=== PATIENT | male | born 1930 | race Caucasian/White ===

== ENCOUNTER 2016-11-09 12:04 | Inpatient (IN) | payer OTHER ==
[~2016-11-09] VITALS: Ht 172.7 cm; Wt 76.1 kg
[~2016-11-09 12:04] MED LIST: ALFU10TA2 PO; CALC1TAB10 PO; CARB50TA3 PO; FINA5TAB PO; LISI5TAB PO; SELE5CAP2 PO
[2016-11-09] MEDS ORDERED: SODIUM CHLORIDE 0.9% 1000ML 250 ML IV STA (13:03)
[2016-11-09] MEDS ORDERED: SODIUM CHLORIDE 0.9% 1000ML 1,000 ML IV STA (13:03)
[2016-11-09 13:53] LABS: BASO % 0.3 %; BASO ABS # 0.01 K/uL (0-0.2); EOS % 2.8 %; HEMATOCRIT 25.4 % (42-52); LYMPH % 43.1 %; LYMPH ABS # 1.68 K/uL (1.2-3.4); MEAN CELL VOLUME 88.2 fL (80-100); MEAN CORPUSCULAR HEMOGLOBIN 29.5 pg (25-34); MEAN CORPUSCULAR HGB CONC 33.5 g/dl (32-36); MEAN PLATELET VOLUME 9.7 fL (7.4-10.4); MONO % 10.3 %; NEUT % 43.5 %; PLATELET COUNT 181 K/uL (130-400); RED BLOOD COUNT 2.88 M/uL (4.7-6.1)
[2016-11-09 14:06] LABS: CREATININE 0.7 mg/dl (0.60-1.40); POTASSIUM 3.9 mmol/L (3.5-5.1)
--- NOTE | 2016-11-09 14:15 | EMERGENCY ROOM VISIT NOTE ---
History Report prepared by Leonardo: Astrid Zapien Under the Supervision of: Dr. Carlos Vasquez M.D. First contact with patient: 12:50 Chief Complaint: DIZZY Stated Complaint: DIZZY AND UNBALANCED Nursing Triage Summary: Patient reports that he is stiff today has history of problems and is having a very hard time getting around History of Present Illness The patient is a 86 year old male who presents to the Emergency Room with complaints of persistent weakness starting this morning. The patient has a history of Parkinson's disease. This morning he was having a hard time standing up and walking. He has been falling frequently. He has not been seriously injured from his falls. He denies any pain, urinary symptoms or fever. He denies any medication changes. He has been eating and drinking normally. Besides feeling weak he has no other focal complaints. Source of History: patient, spouse/significant other Onset: this morning Position: other (global) Quality: other (weakness) Timing: other (persistent) Associated Symptoms: No fevers, No urinary symptoms Note: Pt reports a hard time standing up and walking. Pt denies being in any pain. Review of Systems As above. All other systems reviewed were negative unless otherwise stated in history. At least 10 were reviewed. Past Medical & Surgical Medical Problems: (1) Diabetes (2) Parkinson disease Old medical records were reviewed. Nurse's notes were reviewed and I agree with. Family History No pertinent family history Noncontributory secondary to age. Social History Smoking Status: Former Smoker Marital Status: Housing Status: lives with significant other Occupation Status: unemployed Current/Historical Medications Scheduled Alfuzosin Hcl (Uroxatral), 10 MG PO DAILY Calcium Carbonate-Cholecalcife (Calcium 1000 + D), 1 TAB PO DAILY Carbidopa/Levodopa (Sinemet Cr 50MG/200MG), 1 TAB PO TID Finasteride (Proscar), 1 TAB PO DAILY Lisinopril (Prinivil), 0.5 TAB PO DAILY Selegiline Hcl (Eldepryl), 5 MG PO DAILY Allergies Coded Allergies: No Known Allergies (Unverified , 11/09/16) Physical Exam Vital Signs Date Time Temp Pulse Resp B/P Pulse Ox O2 Delivery O2 Flow Rate FiO2 11/09/16 15:40 47 18 149/74 97 Room Air 11/09/16 14:01 44 20 117/61 96 Room Air 11/09/16 12:55 50 11/09/16 12:18 36.6 51 18 141/68 96 Room Air Physical Exam General: Chronically ill-appearing older male. Well developed well nourished in no acute distress, breathing comfortably on room air. Alert to person, place, day number. Answers questions appropriately. HEENT: Normal cephalic atraumatic. Pupils are equal round and reactive to light. Extraocular movements are intact. Oropharynx is pink with moist mucous membranes. No swelling of the mouth lips or tongue. Neck: Supple with a midline trachea. No meningeal signs or stiffness, no JVD or bruits. No Stridor. Chest: Clear to auscultation bilaterally. No wheezes or rhonchi. No increased work of breathing. Heart: regular rate and rhythm. Abdomen: Soft nontender, nondistended without rebound guarding or rigidity. Extremities: No cyanosis clubbing or edema. No calf tenderness or assymetry Spine/Back. Non tender to palpation. No CVA tenderness Skin: Good turgor without rashes. Neurologic exam: Cranial nerves two through 12 are intact. Motor and sensation are intact and symmetrical throughout. Diffuse weakness and Parkinson changes. Medical Decision & Procedures Laboratory Results 11/09/16 13:22 Red Blood Count 2.88, Mean Corpuscular Volume 88.2, Mean Corpuscular Hemoglobin 29.5, Mean Corpuscular Hemoglobin Concent 33.5, Mean Platelet Volume 9.7, Neutrophils (%) (Auto) 43.5, Lymphocytes (%) (Auto) 43.1, Monocytes (%) (Auto) 10.3, Eosinophils (%) (Auto) 2.8, Basophils (%) (Auto) 0.3, Neutrophils # (Auto ) 1.70, Lymphocytes # (Auto) 1.68, Monocytes # (Auto) 0.40, Eosinophils # (Auto ) 0.11, Basophils # (Auto) 0.01 11/09/16 13:22 Test 11/09/16 13:22 11/09/16 13:28 11/09/16 14:40 11/09/16 14:44 White Blood Count 3.90 K/uL (4.8-10.8) Red Blood Count 2.88 M/uL (4.7-6.1) Hemoglobin 8.5 g/dL (14.0-18.0) Hematocrit 25.4 % (42-52) Mean Corpuscular Volume 88.2 fL (80-100) Mean Corpuscular Hemoglobin 29.5 pg (25-34) Mean Corpuscular Hemoglobin Concent 33.5 g/dl (32-36) Platelet Count 181 K/uL (130-400) Mean Platelet Volume 9.7 fL (7.4-10.4) Neutrophils (%) (Auto) 43.5 % Lymphocytes (%) (Auto) 43.1 % Monocytes (%) (Auto) 10.3 % Eosinophils (%) (Auto) 2.8 % Basophils (%) (Auto) 0.3 % Neutrophils # (Auto) 1.70 K/uL (1.4-6.5) Lymphocytes # (Auto) 1.68 K/uL (1.2-3.4) Monocytes # (Auto) 0.40 K/uL (0.11-0.59) Eosinophils # (Auto) 0.11 K/uL (0-0.5) Basophils # (Auto) 0.01 K/uL (0-0.2) RDW Standard Deviation 51.8 fL (36.4-46.3) RDW Coefficient of Variation 15.9 % (11.5-14.5) Immature Granulocyte % (Auto) 0.0 % Immature Granulocyte # (Auto) 0.00 K/uL (0.00-0.02) Neutrophils % (Manual) 50.4 % Band Neutrophils % (Manual) 0.0 % Lymphocytes % (Manual) 43.4 % Variant Lymphocytes % (manual) 0.0 % Monocytes % (Manual) 4.4 % Eosinophils % (Manual) 0.9 % Basophils % (Manual) 0.9 % (0-2) Neutrophils # (Manual) 1.97 K/uL (1.4-6.5) Total Absolute Neutrophils 1.97 K/uL (1.4-6.5) Lymphocytes # (Manual) 1.69 K/uL (1.2-3.4) Total Absolute Lymphocytes 1.69 K/uL (1.2-3.4) Monocytes # (Manual) 0.17 K/uL (0.11-0.59) Eosinophils # (Manual) 0.04 K/uL (0-0.5) Basophils # (Manual) 0.04 K/uL (0-0.2) Percent Large Granular Lymphocytes 0.0 % Large Platelets 2+ Anion Gap 6.0 mmol/L (3-11) Est Creatinine Clear Calc Drug Dose 63.5 ml/min Estimated GFR () 99.0 Estimated GFR (Non- 85.5 BUN/Creatinine Ratio 40.0 (10-20) Calcium Level 8.0 mg/dl (8.5-10.1) Total Bilirubin 0.4 mg/dl (0.2-1) Direct Bilirubin 0.1 mg/dl (0-0.2) Aspartate Amino Transf (AST/SGOT) 17 U/L (15-37) Alanine Aminotransferase (ALT/SGPT) 6 U/L (12-78) Alkaline Phosphatase 60 U/L (45-117) Total Creatine Kinase 122 U/L (39-308) Creatine Kinase MB 3.2 ng/ml (0.5-3.6) Creatine Kinase MB Ratio 2.6 (0-3.0) Total Protein 5.5 gm/dl (6.4-8.2) Albumin 2.7 gm/dl (3.4-5.0) Lipase 90 U/L (73-393) Thyroid Stimulating Hormone (TSH) 0.728 uIu/ml (0.300-4.500) Bedside Troponin I 0.040 ng/ml (0-0.045) Urine Color YELLOW Urine Appearance CLEAR (CLEAR) Urine pH 6.5 (4.5-7.5) Urine Specific [place] 1.026 (1.000-1.030) Urine Protein NEG (NEG) Urine Glucose (UA) NEG (NEG) Urine Ketones TRACE (NEG) Urine Occult Blood NEG (NEG) Urine Nitrite NEG (NEG) Urine Bilirubin NEG (NEG) Urine Urobilinogen NEG (NEG) Urine Leukocyte Esterase NEG (NEG) Urine WBC (Auto) 1-5 /hpf (0-5) Urine RBC (Auto) 0-4 /hpf (0-4) Urine Hyaline Casts (Auto) 1-5 /lpf (0-5) Urine Epithelial Cells (Auto) 10-20 /lpf (0-5) Urine Bacteria (Auto) NEG (NEG) Prothrombin Time 11.3 SECONDS (9.0-12.0) Prothromb Time International Ratio 1.1 (0.9-1.1) Activated Partial Thromboplast Time 26.4 SECONDS (21.0-31.0) Partial Thromboplastin Ratio 1.0 Laboratory studies as stated above per my review. Medications Administered Medications (Trade) Dose Ordered Sig/Ale Route Start Time Stop Time Status Last Admin Dose Admin Sodium Chloride 250 ml @ 999 mls/hr Q16M STAT IV 11/09/16 13:03 11/09/16 13:18 DC 11/09/16 14:01 999 MLS/HR Sodium Chloride (Nss 1000ml) 1,000 ml @ 100 mls/hr Q10H STAT IV 11/09/16 13:03 11/09/16 23:02 11/09/16 13:03 100 MLS/HR ECG Indication: weakness Rate (beats per minute): 36 Rhythm: sinus bradycardia Findings: no acute ischemic change, no ectopy Comparison ECG Date: Change: rate has decreased, premature SVT now absent ED Course 1250: Past medical records reviewed. The patient was evaluated in room A10, and a complete history and physical examination were performed. 1303: NSS 1000 ml @ 100 mls/hr IV, NSS 250 ml @ 999 mls/hr IV. 1459: Upon reevaluation, the patient is resting comfortably. I discussed the results and treatment plan with the patient and his . They verbalized agreement of the treatment plan. The patient will be evaluated for further management. Medical Decision Differential diagnoses: weakness, Parkinson's exacerbation, CVA, cardiac disease , arrhythmia, electrolyte or metabolic abnormality. This patient comes in as described above. He was placed in room A 10. Here for treatment and evaluation of weakness. He does have Parkinson's and has a hard time getting up and taking care of himself he tends to fall. He's much more weak today than normal, it is diffuse and nonfocal. He has no fever or chills. He was placed on a groundwater monitoring technician in room A 10. CAT scan of his head EKG multiple blood testing was obtained he was hydrated with normal saline. He was reassessed frequently. He was found to be bradycardic however that appears be baseline he's been normotensive with it. It appears be a sinus bradycardia. he is mildly anemic at 8.5 otherwise baselines about 10. He has a BUN at 28 so there could be hydration issue although this is about baseline as well. CAT scan his head is unremarkable. Urinalysis is pending. I have consulted Dr. Mccollum as I do think the patient needs to be admitted for weakness. Impression Primary Impression: Weakness Additional Impression: Frequent falls Scribe Attestation The scribe's documentation has been prepared under my direction and personally reviewed by me in its entirety. I confirm that the note above accurately reflects all work, treatment, procedures, and medical decision making performed by me. Departure Information Dispostion Being Evaluated By Hospitalist Referrals Rohit Carrero M.D. (PCP) Patient Instructions [facility] Problem Qualifiers
[2016-11-09 14:17] LABS: CKMB/CK RATIO 2.6 (0-3.0); THYROID STIMULATING HORMONE 0.728 uIu/ml (0.300-4.500)
[2016-11-09 14:27] LABS: BASO ABS # 0.04 K/uL (0-0.2); BASOPHIL % 0.9 % (0-2); COMPLETE YES; EOSINOPHIL % 0.9 %; LARGE PLATELETS 2+; LYMPH ABS # 1.69 K/uL (1.2-3.4); LYMPHOCYTE % 43.4 %; NEUTROPHILS % 50.4 %
[2016-11-09 15:00] LABS: URINE APPEARANCE CLEAR (CLEAR); URINE BILIRUBIN NEG (NEG); URINE COLOR YELLOW; URINE NITRITE NEG (NEG); URINE PH 6.5 (4.5-7.5); URINE SPECIFIC GRAVITY 1.026 (1.000-1.030); UROBILINOGEN NEG (NEG)
[2016-11-09 15:02] LABS: INR 1.1 (0.9-1.1); PROTHROMBIN TIME (PATIENT) 11.3 SECONDS (9.0-12.0)
[2016-11-09 15:10] LABS: MANUAL MICROSCOPIC REQUIRED? NO; REVIEW REQ? NO
--- NOTE | 2016-11-09 15:35 | DIAGNOSTIC IMAGING REPORT ---
HEAD CT NONCONTRAST CT DOSE: 537.48 mGy.cm HISTORY: Mental status change eval for weakness and dizziness TECHNIQUE: Multiaxial CT images of the head were performed without the use of intravenous contrast. Comparison: 07/06/2015 Findings: The paranasal sinuses and mastoid air cells are clear. Mild cerebellar as well as frontal cerebral atrophy. Age-related components of chronic small vessel change. No acute intracranial abnormality. Ventricular system is midline. Impression: Age-related change. No acute process. Electronically signed by: Usama Quigley M.D. 11/09/2016 3:33 PM Dictated Date/Time: 11/09/2016 3:32 PM
--- NOTE | 2016-11-09 17:52 | DIAGNOSTIC IMAGING REPORT ---
CHEST ONE VIEW PORTABLE CLINICAL HISTORY: Abnormal chest x-ray COMPARISON STUDY: 08/19/2016 FINDINGS: The heart remains enlarged. There is no lobar consolidation. Left upper lung zone opacities are felt to be postinflammatory. There is no failure. There are no pleural effusions.[ IMPRESSION: Stable findings. Left upper lung zone opacities likely postinflammatory. No acute findings Electronically signed by: Jeyson Altman M.D. 11/09/2016 5:50 PM Dictated Date/Time: 11/09/2016 5:49 PM
[2016-11-09 18:25] VITALS: BP 166/68; PULSE 53; TEMP 36.6; Ht 172.7 cm; Wt 76.1 kg
[2016-11-09] MEDS: SODIUM CHLORIDE 0.9% 1000ML 1,000 ML IV SCH (19:04)
[2016-11-09] MEDS: HEPARIN SOD 5000 UNIT/0.5 ML CARP SQ SCH (20:21)
[2016-11-09] MEDS: CARBIDOPA/LEVODOPA 50/200MG EXT REL TAB PO SCH (20:45)
[2016-11-09 23:18] VITALS: BP 178/83; PULSE 45; TEMP 36.7; O2SAT 96
[2016-11-10] VITALS (7 sets, daily range): BP systolic 124–183; BP diastolic 66–95; PULSE 48–96; TEMP 36.4–36.9; O2SAT 90–98
--- NOTE | 2016-11-10 00:47 | HISTORY & PHYSICAL EXAMINATION ---
DATE OF ADMISSION: 11/09/2016 An 86-year-old male admitted through the Emergency Room with multiple problems including mental status changes, severe weakness, Parkinson disease. PRESENT ILLNESS: The patient with Parkinson's disease, arterial hypertension, previously diagnosed with type 2 diabetes mellitus but did not require any drug therapy, general debilitation, progressive weakness, and declining functional ability. His called this morning stating her is down on his hands and feet. That is how he moves around the house at times because he feels safer. He has had multiple falls. She was trying to talk to him but he was not able to understand her very well. She was concerned about his condition and his deteriorating ability to stand up. She was not able to get him up. We asked her to call an ambulance and have him brought to the Emergency Room. The patient was evaluated by Dr. Vasquez. Multiple tests were done. His condition was quite weakened. Eventually, during his stay in the Emergency Room, his mental status started to improve. I saw the patient in the Emergency Room and he was admitted for further treatment. PAST MEDICAL HISTORY: 1. Parkinson's disease diagnosed back in 1997. 2. Type 2 diabetes mellitus. Had been at one time in the past on metformin, but he has not required any medication over the last 2-3 years. 3. 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 4. Right inguinal hernia repair back in 2003. 5. His vaccinations are up to date. SOCIAL HISTORY: He is . This is his second marriage. He has 2 sons from his first marriage. He stopped smoking about 25 years ago. He did smoke cigars in the past. Denied any alcohol. No excessive coffee, tea or soft drinks. He worked for [employer]. FAMILY HISTORY: His mother at age 45, had a brain tumor. His father at age 92, had atherosclerotic heart disease. He has 2 sisters. Children alive and well. ALLERGIES: None. MEDICATIONS ON ADMISSION: All as noted on his home medication list. REVIEW OF SYSTEMS: When I saw the patient in the Emergency Room, he seems to be resting comfortably. He denied any headache, no dizziness. No chest pain, no shortness of breath. No abdominal pain. His appetite has been decreased. No nausea, no vomiting. No problem with his bowel movements. No problem urinating. He was not having any pain in his extremities. He was complaining of pain in his back, the way he was lying down. PHYSICAL EXAMINATION: GENERAL: Well developed, in no distress. His recorded weight was 70 kg, height 162.6 cm, BMI 26.5. VITAL SIGNS: On arrival to the Emergency Room, his blood pressure was 141/68, pulse 51, respiration 18, temperature 36.6, oxygen saturation 96% on room air. SKIN: Warm and dry. No rash. No bruising. HEENT: He usually wears glasses. He has upper dentures. No evidence of any head trauma. No mucosal abnormalities. NECK: Supple. Nontender. No adenopathy, no thyromegaly. No JVD. No evident carotid bruit. CHEST: Normal. HEART: Regular heart sounds. 1/6 systolic murmur. Markedly bradycardic. LUNGS: Clear. ABDOMEN: Soft, nontender, without organomegaly or masses. BACK: Evidence of kyphoscoliosis. EXTREMITIES: No edema, clubbing or cyanosis. No joint or muscle tenderness. Decreased pedal pulses. NEUROLOGIC: Very slow reactions. He is able to answer appropriately. There is no evidence of any lateralized deficit. He does have stiffness related to his Parkinson's disease. ADMISSION LABORATORY TESTS: WBC count 3900, hemoglobin 8.5, hematocrit 25.4, platelet count 181,000. Sodium 144, potassium 3.9, chloride 109, CO2 29, BUN 28, creatinine 0.7, glucose 126, calcium 8.0, total bilirubin 0.4, direct bilirubin 0.1, AST 17, ALT 6, alkaline phosphatase 60, total CK 122, MB fraction 3.2, troponin I 0.040. Total protein 5.5, albumin 2.7, lipase 90. TSH 0.728. His electrocardiogram showed severe sinus bradycardia. His chest x-ray showed stable findings. The left upper lung zone opacity on the left side showed no changes. His CT scan of the head without contrast showed no acute findings. His urinalysis did not show evidence of any urinary tract infection. ASSESSMENT: 1. Mental status changes. 2. Generalized weakness. 3. Severe functional decline. 4. Parkinson's disease. 5. Chronic sinus bradycardia. 6. History of type 2 diabetes mellitus, not requiring any drug therapy. 7. Arterial hypertension. 8. Anemia PLAN: The patient was admitted to a medical bed. Resuscitation level 5. All his laboratory tests were ordered. Started on IV fluid. Continued on his oral medications. Physical and occupational therapies were ordered. The plan is to hydrate him. Investigate his anemia. Check his stool for occult blood. Proceed with his therapies. Decide on the need for rehab. ARCELIA
[2016-11-10 06:13] LABS: BASO % 1.1 %; BASO ABS # 0.04 K/uL (0-0.2); COMPLETE YES; EOS % 5.3 %; HEMATOCRIT 28.8 % (42-52); LYMPH % 47.6 %; LYMPH ABS # 1.72 K/uL (1.2-3.4); MEAN CORPUSCULAR HEMOGLOBIN 29.7 pg (25-34); MEAN PLATELET VOLUME 9.5 fL (7.4-10.4); PLATELET COUNT 197 K/uL (130-400); WHITE BLOOD COUNT 3.61 K/uL (4.8-10.8)
[2016-11-10] MEDS: SODIUM CHLORIDE 0.9% 1000ML 1,000 ML IV SCH ×2 (06:18→17:44)
[2016-11-10] MEDS: HEPARIN SOD 5000 UNIT/0.5 ML CARP SQ SCH ×2 (06:23→18:25)
[2016-11-10 06:37] LABS: ESTIMATED AVERAGE GLUCOSE 154 mg/dl; HA1C FLAG Normal (Normal)
[2016-11-10 06:44] LABS: BUN/CREATININE RATIO 31.7 (10-20); CALCIUM 7.9 mg/dl (8.5-10.1); CREATININE 0.75 mg/dl (0.60-1.40); POTASSIUM 3.8 mmol/L (3.5-5.1)
[2016-11-10 06:48] LABS: FERRITIN 11.9 ng/ml (8.0-388.0)
[2016-11-10] MEDS: FINASTERIDE 5 MG TAB PO SCH (07:44)
[2016-11-10] MEDS: ALFUZosin TAB 10 MG TAB PO SCH (07:44)
[2016-11-10] MEDS: CARBIDOPA/LEVODOPA 50/200MG EXT REL TAB PO SCH ×3 (07:44→20:29)
[2016-11-10] MEDS: SELEGILINE HCL 5 MG CAP PO SCH (07:44)
[2016-11-10] MEDS: HydrALAZINE HCL 20 MG/ML VIAL IV. PRN (07:51)
--- NOTE | 2016-11-10 09:07 | Clinical Documentation Query ---
[facility] : CLINICAL DOCUMENTATION QUERIES QUERY 1 OF 2 Patient is an 86 year old male admitted for evaluation and treatment of mental status changes, generalized weakness, and severe functional decline. Noted is a past medical history of Parkinson's disease. CT scan of the head without contrast demonstrated no acute findings. UA without evidence of infection. As appropriate, consider linking the above diagnostic statements in a manner depicting causality. This directly impacts DRG assignment. In your clinical opinion is this patient being managed for: ( x ) Generalized weakness and severe functional decline (likely/suspected to be) due to Parkinson's disease ( ) Other explanation of clinical findings (Please Explain) ( ) Unable to determine (Please Define) ( ) Need to Discuss ( ) Not Agree The medical record reflects the following clinical findings, treatment, and risk factors. Clinical Indicators: As above Treatment:CT scan of the head without contrast demonstrated no acute findings. UA without evidence of infection, Sinemet, Eldepryl Risk Factors: Likely multifactorial, genetic and environmental. QUERY 2 OF 2 As above, noted documentation includes "altered mental status". As noted, CT scan of the head without contrast was negative for acute changes. Condition noted to improve during interval in the emergency department. Serum BUN elevated with normal creatinine. Recieved IVF NSS bolus and maintenance fluids which continue. Consider documentation as suggested below as clinically appropriate. Thank you. In your clinical opinion is this patient being managed for: ( ) Metabolic encephalopathy on admission, resolved ( ) Other explanation of clinical findings (Please Explain) ( ) Unable to determine (Please Define) ( ) Need to Discuss (x ) Not Agree The medical record reflects the following clinical findings, treatment, and risk factors. Clinical Indicators: Altered mental status Treatment:IVF, CT scan of the head, labs, cultures Risk Factors: Age, medications, infection Please clarify and document your clinical opinion in the progress notes and discharge summary. Terms such as "probable", "suspected", "likely", "questionable", "possible", or "still to be ruled out" are acceptable. IF IN AGREEMENT, YOU MUST DOCUMENT ABOVE DIAGNOSTIC STATEMENT IN DAILY PROGRESS NOTES AND DISCHARGE SUMMARY. This document is not part of the patient's record. Thank You, Carlos Rubio, RN [phone]
[2016-11-10] MEDS ORDERED: ALUMINUM/MAGNESIUM SUSP 30 ML UDC ONE (16:33)
--- NOTE | 2016-11-10 19:08 | PROGRESS NOTE ---
DATE: 11/10/2016 SUBJECTIVE: An 86-year-old male admitted with mental status changes, generalized weakness, markedly decreased function. He has severe Parkinson disease. He also has arterial hypertension. The patient was admitted, started on IV fluids. All his laboratory tests were ordered. Physical and occupational therapies were ordered. Case management consultation was also requested to work on getting him to a rehabilitation. Overall, his condition improved. He was sitting up in the chair. He is tolerating his diet. He is able to swallow. Denied any headache or dizziness. No chest pain, no shortness of breath. No nausea or vomiting. No pain in his back or extremities. He is generally quite weak. Needs assistance with his activity. PHYSICAL EXAMINATION: GENERAL: Well-developed in no distress. VITAL SIGNS: Blood pressure 183/95, pulse 96, respirations 16, temperature 36.4, oxygen saturation 90% on room air. SKIN: Warm and dry. No rash. HEENT: No mucosal abnormality. He does have drooling from his mouth related to his Parkinson disease. NECK: No adenopathy. No JVD. HEART: Regular heart sounds. LUNGS: Clear. ABDOMEN: Soft, nontender. BACK: No spinal tenderness. EXTREMITIES: No edema, clubbing, or cyanosis. TODAY'S LABORATORY TESTS: WBC count 3610, hemoglobin 9.5, hematocrit 28.8, platelet count 197,000. Sodium 142, potassium 3.8, chloride 107, CO2 29, BUN 24, creatinine 0.75, glucose 108, calcium 7.9. ASSESSMENT: 1. Mental status changes. 2. Parkinson disease. 3. Functional decline. 4. Arterial hypertension. PLAN: 1. Continue IV fluid. 2. Continue monitoring his laboratory tests. 3. Physical and occupational therapy. 4. We will continue working on getting him to [facility]. I spoke with his today.
[2016-11-11] VITALS (7 sets, daily range): BP systolic 145–194; BP diastolic 65–82; PULSE 57–60; TEMP 36.3–36.9; O2SAT 93–97
[2016-11-11] MEDS: SODIUM CHLORIDE 0.9% 1000ML 1,000 ML IV SCH ×2 (06:21→17:16)
[2016-11-11] MEDS: HEPARIN SOD 5000 UNIT/0.5 ML CARP SQ SCH ×2 (06:29→17:16)
[2016-11-11 06:31] LABS: BASO % 0.5 %; BASO ABS # 0.02 K/uL (0-0.2); EOS % 4.7 %; HEMATOCRIT 26.8 % (42-52); IG% 0.2 %; LYMPH ABS # 1.81 K/uL (1.2-3.4); MEAN CELL VOLUME 88.7 fL (80-100); MEAN CORPUSCULAR HEMOGLOBIN 29.5 pg (25-34); MEAN CORPUSCULAR HGB CONC 33.2 g/dl (32-36); MEAN PLATELET VOLUME 9.8 fL (7.4-10.4); NEUT % 40.6 %; PLATELET COUNT 173 K/uL (130-400); RED BLOOD COUNT 3.02 M/uL (4.7-6.1); WHITE BLOOD COUNT 4.02 K/uL (4.8-10.8)
[2016-11-11 07:11] LABS: BUN/CREATININE RATIO 32.6 (10-20); CREATININE 0.65 mg/dl (0.60-1.40); POTASSIUM 4.1 mmol/L (3.5-5.1)
[2016-11-11 07:16] LABS: COMPLETE YES; LARGE PLATELETS 1+
[2016-11-11] MEDS: CARBIDOPA/LEVODOPA 50/200MG EXT REL TAB PO SCH ×3 (07:56→20:28)
[2016-11-11] MEDS: FINASTERIDE 5 MG TAB PO SCH (07:57)
[2016-11-11] MEDS: SELEGILINE HCL 5 MG CAP PO SCH (07:57)
[2016-11-11] MEDS: ALFUZosin TAB 10 MG TAB PO SCH (07:57)
[2016-11-11] MEDS: ALUMINUM/MAGNESIUM/SIMETH (MAALOX MAX) 30 ML UDC PO PRN (10:23)
[2016-11-11] MEDS: HydrALAZINE HCL 20 MG/ML VIAL IV. PRN ×2 (15:23→23:28)
[2016-11-11] MEDS ORDERED: LISINOPRIL 5 MG TAB PO ONE (18:45)
--- NOTE | 2016-11-11 20:50 | PROGRESS NOTE ---
DATE: 11/11/2016 An 86-year-old male, admitted with mental status changes with severe weakness. He has Parkinson's disease. Also treated for arterial hypertension. The patient was admitted. He was started on IV fluids. All his laboratory tests were ordered. Physical and occupational therapies were ordered. He still is feeling quite weak. He has the tremor and the findings on exam consistent with his severe Parkinson's disease. He denied any headache or dizziness. No chest pain. No shortness of breath. He is tolerating his diet. No abdominal pain, no nausea, no vomiting. No problem urinating. He has not had a bowel movement yet. PHYSICAL EXAMINATION: GENERAL: Well-developed, in no distress. VITAL SIGNS: Blood pressure 182/80, pulse 58, respirations 18, temperature 36.4 and oxygen saturation 97% on room air. SKIN: Warm and dry. No rash. HEENT: No mucosal abnormality. NECK: No JVD. No adenopathy. HEART: Regular heart sounds. LUNGS: Clear. ABDOMEN: Soft and nontender. BACK: No spinal tenderness. EXTREMITIES: No edema, clubbing or cyanosis. TODAY'S LABORATORY TESTS: WBC count 4020, hemoglobin 8.9, hematocrit 26.8 and platelet count 173,000. Sodium 142, potassium 4.1, chloride 108, CO2 27, BUN 21, creatinine 0.65, glucose 113 and calcium 8.0. ASSESSMENT: 1. Generalized weakness. 2. Marked functional decline. 3. Parkinson's disease. 4. Arterial hypertension. PLAN: 1. Early this morning, his son Collin was visiting him and he wanted to talk to me, so I spoke with him by phone. He stated that he was concerned about his father going home and he thought that he should be in a nursing facility. I asked him to talk to case management; we are working on discharge planning and need to come to an agreement as far as what he would like to do. 2. I added lisinopril because of his elevated blood pressure. 3. Continuing all his other medications. 4. Continuing his therapies.
[2016-11-12] VITALS (8 sets, daily range): BP systolic 104–162; BP diastolic 57–77; PULSE 52–66; TEMP 36.6–37.2; O2SAT 93–97
[2016-11-12] MEDS: HEPARIN SOD 5000 UNIT/0.5 ML CARP SQ SCH ×2 (05:49→16:58)
[2016-11-12 06:20] LABS: BASO % 0.4 %; BASO ABS # 0.02 K/uL (0-0.2); COMPLETE YES; EOS % 2.3 %; HEMATOCRIT 28.2 % (42-52); IG% 0.2 %; LYMPH % 37.8 %; LYMPH ABS # 2.16 K/uL (1.2-3.4); MEAN CELL VOLUME 86.2 fL (80-100); MEAN CORPUSCULAR HEMOGLOBIN 28.4 pg (25-34); MEAN PLATELET VOLUME 9.1 fL (7.4-10.4); MONO % 9.8 %; NEUT % 49.5 %; PLATELET COUNT 193 K/uL (130-400); RED BLOOD COUNT 3.27 M/uL (4.7-6.1); WHITE BLOOD COUNT 5.71 K/uL (4.8-10.8)
[2016-11-12 06:57] LABS: BUN/CREATININE RATIO 32.7 (10-20); CALCIUM 7.6 mg/dl (8.5-10.1); CREATININE 0.63 mg/dl (0.60-1.40); POTASSIUM 4.3 mmol/L (3.5-5.1)
[2016-11-12] MEDS: SELEGILINE HCL 5 MG CAP PO SCH (08:28)
[2016-11-12] MEDS: CARBIDOPA/LEVODOPA 50/200MG EXT REL TAB PO SCH ×3 (08:29→20:39)
[2016-11-12] MEDS: FINASTERIDE 5 MG TAB PO SCH (08:29)
[2016-11-12] MEDS: SODIUM CHLORIDE 0.9% 1000ML 1,000 ML IV SCH (08:29)
[2016-11-12] MEDS: ALFUZosin TAB 10 MG TAB PO SCH (08:30)
[2016-11-12] MEDS: LISINOPRIL 5 MG TAB PO SCH (08:30)
[2016-11-12] MEDS: ALUMINUM/MAGNESIUM/SIMETH (MAALOX MAX) 30 ML UDC PO PRN (09:51)
[2016-11-12] MEDS ORDERED: MAGNESIUM HYDROXIDE SUSP 30 ML UDC PO ONE (17:00)
--- NOTE | 2016-11-12 17:37 | PROGRESS NOTE ---
DATE: 11/12/2016 An 86-year-old male admitted with multiple problems including generalized weakness, functional decline, Parkinson disease, has had multiple falls at home. He also has previously diagnosed type 2 diabetes mellitus, but not requiring any drug therapy. He is also treated for arterial hypertension. Overall, his condition is improved. His mental status is back to his baseline. He is awake and alert and quite appropriate and conversant. There is no evidence of any lateralized deficit. His limitation is mostly related to his Parkinson disease. He denied any headache or dizziness or lightheadedness. No chest pain, no shortness of breath. He is eating well. He is able to feed himself. No abdominal pain, no nausea, no vomiting. No problem urinating. He has not had a bowel movement yet. PHYSICAL EXAMINATION: GENERAL: Well developed, in no distress. VITAL SIGNS: Blood pressure 162/76, pulse 60, respirations 18, temperature 36.6, oxygen saturation 96% on room air. SKIN: Warm and dry. No rash. HEENT: He does have drooling from his mouth. NECK: No JVD, no adenopathy. HEART: Regular heart sounds. LUNGS: Clear. ABDOMEN: Soft, nontender. BACK: No spinal tenderness. EXTREMITIES: No edema, clubbing, or cyanosis. TODAY'S LABORATORY TESTS: WBC count 5710, hemoglobin 9.3, hematocrit 28.2, platelet count 193,000. Sodium 141, potassium 4.3, chloride 107, CO2 25, BUN 21, creatinine 0.63, glucose 120, calcium 7.6. ASSESSMENT: 1. Generalized weakness and functional decline. 2. Mental status changes. Resolved. 3. Arterial hypertension. 4. Parkinson disease. PLAN: 1. I discontinued his IV fluid. 2. We will give him milk of magnesia to facilitate his bowel movements. 3. We will also put him on a stool softener. 4. Continuing with his therapies. 5. I was able to walk with him in the hallway. He is using a walker with wheels. He did quite well. He does have very slow pace. He has to work on his balance and equilibrium. These are some chronic issues with him. 6. We are working on discharge planning. We will anticipate the final decision sometimes in the next day or so.
[2016-11-12] MEDS: DOCUSATE SODIUM 100 MG CAP PO SCH (20:39)
[2016-11-13] VITALS (8 sets, daily range): BP systolic 104–157; BP diastolic 44–72; PULSE 50–73; TEMP 36.8–36.9; O2SAT 93–98
[2016-11-13] MEDS: HEPARIN SOD 5000 UNIT/0.5 ML CARP SQ SCH ×2 (05:26→18:15)
[2016-11-13] MEDS: FINASTERIDE 5 MG TAB PO SCH (08:19)
[2016-11-13] MEDS: SELEGILINE HCL 5 MG CAP PO SCH (08:19)
[2016-11-13] MEDS: ALFUZosin TAB 10 MG TAB PO SCH (08:20)
[2016-11-13] MEDS: LISINOPRIL 5 MG TAB PO SCH (08:20)
[2016-11-13] MEDS: CARBIDOPA/LEVODOPA 50/200MG EXT REL TAB PO SCH ×3 (08:20→21:12)
[2016-11-13] MEDS: DOCUSATE SODIUM 100 MG CAP PO SCH ×2 (08:21→21:12)
[2016-11-13] MEDS: ALUMINUM/MAGNESIUM/SIMETH (MAALOX MAX) 30 ML UDC PO PRN (14:09)
[2016-11-13 16:27] LABS: ALBUMIN 3.1 G/DL (3.8-4.8); GAMMA GLOBULIN 1.1 G/DL (0.8-1.7); TOTAL PROTEIN 5.7 G/DL (6.2-8.3)
--- NOTE | 2016-11-13 20:49 | PROGRESS NOTE ---
DATE: 11/13/2016 An 86-year-old male, with Parkinson's disease. He was admitted with mental status changes, generalized weakness, functional decline and had multiple falls at home. He was also treated for arterial hypertension. He has a history of type 2 diabetes mellitus, but has not required any treatment. Overall, his condition has improved. He was hydrated. Laboratory tests were monitored. Physical and occupational therapies were ordered. His mental status is back to his baseline. He denied any new problems or complaints. No headache or dizziness. No chest pain, no shortness of breath. No abdominal pain. He did have bowel movements. No urinary problem. No pain in his back or extremities. We are working on discharge planning. The main issue is he needs rehabilitation. We are working on [facility]. Hopefully, this will be approved. If not, the other options include [facility]. PHYSICAL EXAMINATION: GENERAL: Well-developed, in no distress. VITAL SIGNS: Blood pressure 157/72, pulse 54, respirations 22, temperature 36.8 and oxygen saturation 93% on room air. SKIN: Warm and dry. No rash. HEENT: He does have some mouth drooling; this is chronic. NECK: Supple. Nontender. No JVD. HEART: Regular heart sounds. LUNGS: Clear. ABDOMEN: Soft and nontender. EXTREMITIES: No edema, clubbing or cyanosis. ASSESSMENT: 1. Parkinson's disease. 2. Mental status changes. 3. Functional decline. 4. Arterial hypertension. PLAN: 1. Continuing the same medications. 2. Working on his discharge planning. 3. We are waiting for approval either to go to [facility] or possibly other options. MTDAshlee
[2016-11-14] MEDS: HEPARIN SOD 5000 UNIT/0.5 ML CARP SQ SCH ×2 (05:33→17:23)
[2016-11-14 06:10] LABS: BASO % 0.5 %; BASO ABS # 0.02 K/uL (0-0.2); HEMATOCRIT 25.8 % (42-52); LYMPH % 38.5 %; LYMPH ABS # 1.56 K/uL (1.2-3.4); MEAN CELL VOLUME 88.4 fL (80-100); MEAN CORPUSCULAR HEMOGLOBIN 29.5 pg (25-34); MEAN CORPUSCULAR HGB CONC 33.3 g/dl (32-36); MEAN PLATELET VOLUME 9.8 fL (7.4-10.4); MONO % 10.4 %; NEUT % 46.6 %; PLATELET COUNT 184 K/uL (130-400); RED BLOOD COUNT 2.92 M/uL (4.7-6.1); WHITE BLOOD COUNT 4.05 K/uL (4.8-10.8)
[2016-11-14 06:50] LABS: BUN/CREATININE RATIO 26.8 (10-20); COMPLETE YES; CREATININE 0.79 mg/dl (0.60-1.40); GIANT PLATELETS 2+; POTASSIUM 4.5 mmol/L (3.5-5.1)
[2016-11-14] MEDS: LISINOPRIL 5 MG TAB PO SCH (07:43)
[2016-11-14] MEDS: DOCUSATE SODIUM 100 MG CAP PO SCH ×2 (07:44→19:30)
[2016-11-14] MEDS: CARBIDOPA/LEVODOPA 50/200MG EXT REL TAB PO SCH ×3 (07:44→19:30)
[2016-11-14] MEDS: SELEGILINE HCL 5 MG CAP PO SCH (07:44)
[2016-11-14] MEDS: ALFUZosin TAB 10 MG TAB PO SCH (07:44)
[2016-11-14] MEDS: FINASTERIDE 5 MG TAB PO SCH (07:44)
[2016-11-14 07:47] VITALS: BP 131/66; PULSE 52; TEMP 36.7; O2SAT 95
[2016-11-14 10:52] VITALS: BP 117/60; PULSE 59; O2SAT 98
[2016-11-14 15:11] VITALS: BP 120/63; PULSE 60; TEMP 37.3; O2SAT 95
[2016-11-14] MEDS: FERROUS GLUCONATE 324 MG TAB PO SCH (17:22)
--- NOTE | 2016-11-14 21:44 | PROGRESS NOTE ---
DATE: 11/14/2016 An 86-year-old male with Parkinson disease, admitted with mental status changes, functional decline, multiple falls. He is also anemic, normochromic normocytic. There has been no evidence of any blood loss. The patient was admitted. He was hydrated. His laboratory tests were all monitored. Physical and occupational therapies were ordered. Case management consultation was requested to help with his discharge planning. Overall, from a mental standpoint, he is back to his baseline. He is awake and alert and conversant and appropriate. Denied any headache or dizziness or lightheadedness. Denied any chest pain, no shortness of breath. No abdominal pain, no nausea, no vomiting. He has had bowel movements. No urinary problem. No pain in his back or extremities. He did quite well with his therapy today and he ambulated. PHYSICAL EXAMINATION: GENERAL: Well developed, in no distress. VITAL SIGNS: Blood pressure 131/66, pulse 52, respirations 18, temperature 36.7, oxygen saturation 95% on room air. SKIN: Warm and dry. No rash. HEENT: He does have a tremor. He does have drooling through his mouth. NECK: Supple without adenopathy or thyromegaly. HEART: Regular heart sounds. LUNGS: Clear. ABDOMEN: Soft, nontender. BACK: No spinal tenderness. EXTREMITIES: No edema, clubbing, or cyanosis. NEUROLOGIC: He is awake, alert and oriented. There is no lateralized deficit. He does have a tremor. He does have rigidity. He also has spontaneous movements of his face and neck and shoulder. TODAY'S LABORATORY TESTS: WBC count 4050, hemoglobin 8.6, hematocrit 25.8, platelet count 184,000. Sodium 140, potassium 4.5, chloride 106, CO2 28, BUN 21, creatinine 0.79, glucose 115, calcium 8.0. ASSESSMENT: 1. Parkinson disease. 2. Functional decline. 3. Arterial hypertension. 4. Mental status changes, resolved. PLAN: 1. Continuing the same medications. 2. Continuing his therapies. 3. Unfortunately, today we were notified that his insurance company has declined an approval to [facility]. 4. The next choice is [facility]. There is a bed available on . We will see if we could get that approved.
[2016-11-14 23:48] VITALS: BP 98/50; PULSE 51; TEMP 36.8; O2SAT 95
[2016-11-15] MEDS: HEPARIN SOD 5000 UNIT/0.5 ML CARP SQ SCH (06:11)
[2016-11-15 07:09] VITALS: BP 148/74; PULSE 52; TEMP 36.9; O2SAT 94
[2016-11-15] MEDS: CARBIDOPA/LEVODOPA 50/200MG EXT REL TAB PO SCH ×2 (07:32→13:30)
[2016-11-15] MEDS: FERROUS GLUCONATE 324 MG TAB PO SCH (07:32)
[2016-11-15] MEDS: DOCUSATE SODIUM 100 MG CAP PO SCH (07:32)
[2016-11-15] MEDS: ALFUZosin TAB 10 MG TAB PO SCH (07:32)
[2016-11-15] MEDS: FINASTERIDE 5 MG TAB PO SCH (07:33)
[2016-11-15] MEDS: LISINOPRIL 5 MG TAB PO SCH (07:33)
[2016-11-15] MEDS: SELEGILINE HCL 5 MG CAP PO SCH (07:33)
[2016-11-15] MEDS ORDERED: FINA5TAB PO (12:19)
[2016-11-15] MEDS ORDERED: CALC1TAB10 PO (12:19)
[2016-11-15] MEDS ORDERED: SELE5CAP2 PO (12:19)
[2016-11-15] MEDS ORDERED: ALFU10TA2 PO (12:19)
[2016-11-15] MEDS ORDERED: LISI5TAB PO (12:19)
[2016-11-15] MEDS ORDERED: CLC100 PO (12:19)
[2016-11-15] MEDS ORDERED: CARB50TA3 PO (12:19)
[2016-11-15] MEDS ORDERED: FRRG PO (12:19)
--- NOTE | 2016-11-15 12:32 | Discharge Instructions ---
Discharge Instructions Date of Service Nov 15, 2016. Admission Reason for Admission: General Weakness Mental status changes. Resolved Functional decline Parkinson's disease Arterial hypertension Type 2 diabetes mellitus. Not requiring any drug therapy Anemia Discharge Discharge Diagnosis / Problem: Mental status changes,resolved.Parkinson's disease.Functioal decline. Discharge Goals Goal(s): Decrease discomfort, Improve function, Increase independence, Improve disease control, Improve nutritional status Activity Recommendations Activity Level: Assistance Required Therapies: Physical Therapy, Occupational Therapy . Additional Information Patient informed of condition: Yes Advance Directives: No DNR: Yes Level of Care: Skilled Communicable Disease: No Prognosis: Stable Patel Catheter: No Current Hospital Diet Patient's current hospital diet: Regular Diet Discharge Diet Recommended Diet: Regular Diet Pending Studies Studies pending at discharge: yes (immunoelectrophoresis) List of pending studies: Immunoelectropheresis Laboratory Results Hemoglobin A1c Test 11/10/16 06:00 Range/Units Estimated Average Glucose 154 mg/dl Hemoglobin A1c 7.0 H 4.5-5.6 % Medical Emergencies . Who to Call and When: Medical Emergencies: If at any time you feel your situation is an emergency, please call 911 immediately. . Non-Emergent Contact Non-Emergency issues call your: Primary Care Provider . . "Provider Documentation" section prepared by Rohit Mccollum. Core Measure Problem Core Measures: None
[2016-11-15 12:45] VITALS: BP 148/74; PULSE 52; TEMP 36.9; O2SAT 94
--- NOTE | 2016-11-15 21:44 | PROGRESS NOTE ---
DATE: 11/15/2016 An 86-year-old male admitted with mental status changes and functional decline. He does have Parkinson's disease. He is also treated for arterial hypertension. The patient was admitted. He was hydrated. His laboratory tests were monitored. His mental status returned to his baseline. Physical and occupational therapies were ordered. He was ambulating, using his walker with wheels and with assistance. He denied any headache. No dizziness, no lightheadedness. Denied any chest pain, no shortness of breath. No abdominal pain, no nausea, no vomiting. Good appetite. No problem with his bowel movements. No problem urinating. No pain in his back or extremities. PHYSICAL EXAMINATION: GENERAL: Well developed, in no distress. He was sitting at bedside in the chair waiting for his breakfast. VITAL SIGNS: Blood pressure 148/74, pulse 52, respiration 18, temperature 36.9, oxygen saturation 94% on room air. SKIN: Warm and dry. No rash. HEENT: No mucosal abnormality. NECK: No JVD. No adenopathy. HEART: Regular heart sounds. LUNGS: Clear. ABDOMEN: Soft, nontender. BACK: No spinal tenderness. EXTREMITIES: No edema, clubbing, or cyanosis. ASSESSMENT: 1. Mental status changes. Resolved. 2. Parkinson's disease. 3. Functional decline. 4. Arterial hypertension. PLAN: 1. His condition is stable. 2. His blood pressure is dropping at times. Around midnight last night, it was 98/50. 3. I did cut down his lisinopril to 2.5 mg daily. 4. Continue on his other medications. 5. Arrangements were completed for him to go to [facility]. I did complete his discharge instructions and wrote his prescriptions. 6. What happens next, it all depends on what condition he is after his rehab, whether he is going to be able to go back home. His family and the patient have talked on multiple occasions about an extended care facility.
--- NOTE | 2016-11-16 01:20 | DISCHARGE SUMMARY ---
DISCHARGE DIAGNOSES: 1. Mental status changes. 2. Generalized weakness. 3. Functional decline. 4. Parkinson disease. 5. Arterial hypertension. 6. Type 2 diabetes mellitus, not requiring any drug therapy. 7. Anemia. 8. Benign prostatic hypertrophy. DISCHARGE MEDICATIONS: Included: 1. Docusate sodium 100 mg twice a day. 2. Ferrous gluconate 324 mg twice a day. 3. Uroxatral 10 mg daily. 4. Calcium with vitamin D 1000 mg daily. 5. Sinemet 50/200 one tablet 3 times a day. 6. Finasteride 5 mg daily. 7. Lisinopril 2.5 mg daily. 8. Eldepryl 5 mg daily. An 86-year-old male admitted through the Emergency Room with multiple problems including mental status changes, severe weakness, and Parkinson disease. The patient also has type 2 diabetes mellitus, but not requiring any drug therapy. He had significant functional decline. He has been at home with his . His condition has been deteriorating. He is having problem with any ambulation. Most of the time at home, he gets down on his hands and knees to try to ambulate. His cannot help him up. She called in the morning stating that her was down on his hands and feet. She was unable to help him up. She was trying to talk to him. She does not think that he is understanding her very well. We asked her to call an ambulance and have him brought to the Emergency Room for evaluation. He was seen by Dr. Vasquez. Multiple tests were done. His mental status started to improve. The patient was not able to return home. I saw him in the Emergency Room and he was admitted for further treatment. PAST MEDICAL HISTORY, SOCIAL HISTORY AND FAMILY HISTORY: All as noted. ALLERGIES: None. MEDICATIONS ON ADMISSION: All as noted. PHYSICAL EXAMINATION AND ADMISSION LABORATORY TESTS: All as noted. HOSPITAL COURSE: The patient was admitted to medical bed. Resuscitation level 5 as established during his last admission. All his laboratory tests were ordered. He was started on IV fluid. He was continued on his oral medications. Physical and occupational therapies were ordered. He was noted to be anemic. Additional tests were ordered. He was hydrated. His laboratory tests were monitored. He was anemic. There was no evidence of any blood loss. His serum iron was decreased. His ferritin level was at the lower limit of normal range. B12 and folate were normal. Serum protein electrophoresis showed very minor abnormality and additional tests ordered. An immunoelectrophoresis was ordered. Physical and occupational therapies were ordered. The patient was ambulating with assistance. He was using his walker. He needed assistance. Rehab was recommended. His condition improved. He was able to sit up in the chair. He was feeding himself. He was tolerating his therapies. Tolerating his medications. We attempted to get him to [facility], but unfortunately his insurance company did not approve it. The second choice for the family was [facility]. All information was sent. We got a notification today that there was a bed available. So arrangements were made for him to go to [facility]. It is not sure at this point whether the patient is going to be able to go back home. Family members voiced concern about the condition at home. There was some discussion about an extended care facility. Either in this area or [place]. I did tell Mr. Tony that whatever he decides along with the family can be done. [facility] will go through his rehabilitation.
[2016-11-16] MEDS ORDERED: LISINOPRIL 2.5 MG TAB PO SCH (08:00)
== END 2016-11-15 14:01 | DRG 57 ==
LOC: ENRESERVDT → ENRESERVTM → C.EDB 12:05 → C.MED 16:48 → C.MS4W 11-13 23:04
PROVIDERS: ADMIT Internal Medicine; ATTEND Internal Medicine
DX: G20 Parkinson's disease (principal); R41.82 Altered mental status, unspecified; D64.9 Anemia, unspecified; E11.9 Type 2 diabetes mellitus without complications; R00.1 Bradycardia, unspecified; I10 Essential (primary) hypertension; N40.0 Benign prostatic hyperplasia without lower urinary tract symptoms; M62.81 Muscle weakness (generalized); R41.81 Age-related cognitive decline; Z91.81 History of falling; Z87.891 Personal history of nicotine dependence; Z79.899 Other long term (current) drug therapy